=== PATIENT | male | born 1955 | race Caucasian/White ===

== ENCOUNTER 2024-01-22 13:20 | Emergency (ER) | payer MEDICARE, SELFPAY ==
[2024-01-22 13:20] VITALS: BP 118/73; PULSE 56; RESP 12; TEMP 35.3; O2SAT 97; BMI 34.9
[2024-01-22 13:40] VITALS: TEMP 36
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
--- NOTE | 2024-01-22 14:05 | RAD_ITS ---
EXAM: XR LEFT HIP WITH PELVIS WHEN PERFORMED, 2 OR 3 VIEWS CLINICAL INDICATION: left hip pain TECHNIQUE: Two or three views of the left hip with pelvis when performed. COMPARISON: No relevant prior studies available. FINDINGS: BONES/JOINTS: Severe right hip joint arthrosis with near obliteration of the joint space, acetabular sclerosis, and marginal osteophytes. Moderate degenerative changes of the left hip. Mild marginal osteophytes and articular sclerosis. Acetabular hypertrophy on the left. Degenerative changes in the lower lumbar spine and bilateral SI joints. No widening of the pubic symphysis. No acute fracture or dislocation. SOFT TISSUES: No significant abnormality. No soft tissue swelling or gas. RAD/HIP, UNI W/ Pelvis 2-3 Views IMPRESSION: No acute fracture or dislocation. Right greater than left hip joint arthrosis. Electronically Signed: Paolo Alexander DO at 14:53 EDT ,
--- NOTE | 2024-01-22 14:05 | CT_ITS ---
EXAM: CT HEAD AND CERVICAL SPINE WITHOUT INTRAVENOUS CONTRAST CLINICAL INDICATION: head injury, pain. TECHNIQUE: Helically acquired images were obtained of the head/brain and cervical spine without intravenous contrast. 2D reformatted images were reviewed. This CT exam was performed using one or more of the following dose reduction techniques: automated exposure control, adjustment of the mA and/or kV according to patient size, and/or use of iterative reconstruction technique. COMPARISON: Chest on the same date. Thoracic spine on the same date. FINDINGS: BRAIN AND EXTRA-AXIAL SPACES: No significant abnormality. No intra- or extra-axial hemorrhage. No evidence of acute infarct. No intracranial mass or mass effect. There is preservation of the campbell/white matter interface. Posterior fossa structures are unremarkable. Ventricles are appropriate for age. No hydrocephalus. Basal cisterns are patent. SKULL: No significant abnormality. No discrete lytic or blastic abnormalities. SINUSES: Left maxillary sinus mucus retention cyst. MASTOID AIR CELLS: No significant abnormality. Clear. SELLA: Evidence of partially empty sella turcica. VERTEBRAE: Multilevel facet, uncovertebral joint, and endplate osteophytosis. Reversal of expected cervical lordosis which may be in part positional or degenerative in nature. Partially visualized postoperative changes in the upper thoracic spine. No fracture. No traumatic subluxation. No discrete lytic or blastic abnormality. Aside from degenerative changes, normal craniocervical junction and cervicothoracic junction. DISCS/SPINAL CANAL/NEURAL FORAMINA: Mild to moderate multilevel spinal canal stenosis. Multilevel intervertebral disc height loss. Mild to moderate multilevel neural foraminal narrowing. SOFT TISSUES: No significant abnormality. No prevertebral soft tissue swelling. VASCULATURE: Vascular calcifications in the neck. LYMPH NODES: No significant abnormality. No cervical adenopathy. THYROID: Left-sided central neck mass described on comparison CT chest. This does not appear to emanate from the thyroid gland and may be a parathyroid adenoma or other entity. LUNG APICES: Normal as visualized. Clear. CT/Brain/Head without Contrast IMPRESSION: 1. Left-sided central neck mass described on comparison CT chest. This does not appear to emanate from the thyroid gland and may be a parathyroid adenoma or other entity. 2. No CT evidence of acute intracranial pathology. 3. No evidence of acute cervical spine fracture or traumatic subluxation. Degenerative changes. Electronically Signed: Paolo Alexander DO at 15:27 EDT ,
--- NOTE | 2024-01-22 14:05 | CT_ITS ---
ACR Level 3 findings have been noted. An addendum which confirms receipt of the report will follow. EXAM: CT CHEST, ABDOMEN, PELVIS, THORACIC SPINE AND LUMBAR SPINE WITHOUT INTRAVENOUS CONTRAST CLINICAL INDICATION: chest pain, abdominal pain TECHNIQUE: Helically acquired images were obtained of the chest, abdomen, pelvis, thoracic spine and lumbar spine without intravenous contrast. This CT exam was performed using one or more of the following dose reduction techniques: automated exposure control, adjustment of the mA and/or kV according to patient size, and/or use of iterative reconstruction technique. COMPARISON: CT cervical spine on the same date. FINDINGS: CHEST: LUNGS AND PLEURAL SPACES: Centrilobular emphysema. No mass. No pleural effusion or thickening. No pneumothorax. HEART: No significant abnormality. Heart size is normal. No pericardial effusion. No significant coronary artery calcifications. MEDIASTINUM: Medium to large hiatus hernia. No mediastinal or hilar adenopathy. Esophagus is unremarkable. No hiatal hernia. THYROID: No definite intrathyroidal lesion. Left-sided neck mass measuring up to 3.5 cm seemingly discrete from the adjacent thyroid gland, perhaps a large parathyroid adenoma. ABDOMEN: LIVER: Multiple hepatic cysts are present for which no follow-up is indicated. GALLBLADDER AND BILE DUCTS: No significant abnormality. No calcified gallstones. No gallbladder distention or wall edema. No intra- or extrahepatic biliary ductal dilation. PANCREAS: No significant abnormality. No focal cystic mass. SPLEEN: No significant abnormality. Normal size without focal cystic or solid mass. ADRENALS: No significant abnormality. No nodules. KIDNEYS AND URETERS: No significant abnormality. Normal renal size and position. No hydronephrosis. STOMACH AND BOWEL: Colonic diverticulosis without evidence of acute diverticulitis. No stomach or bowel distention. PELVIS: APPENDIX: Status post appendectomy. BLADDER: No significant abnormality. REPRODUCTIVE: Normal as visualized. No mass. THORACIC and LUMBAR SPINE: VERTEBRAE: Multilevel endplate osteophytosis and facet arthrosis. Multilevel thoracic laminoplasty and laminectomy. Multiple Schmorl''s nodes are identified. [place] left lumbar curvature. No spondylolysis or spondylolisthesis. DISCS/SPINAL CANAL/NEURAL FORAMINA: Mild multilevel thoracic spinal canal stenosis and moderate to severe multilevel lumbar spinal canal stenosis particularly at the level of L2-L3 associated with disc herniation, endplate osteophyte, annular calcification. Multilevel intervertebral disc height loss with scattered vacuum phenomenon particularly in the lumbar region. CHEST, ABDOMEN and PELVIS: INTRAPERITONEAL SPACE: No significant abnormality. No ascites or other fluid collection. No free air. BONES/JOINTS: Comminuted mid sternal fracture. Fracture of the right anterior fifth rib. Severe right and moderate left hip joint arthrosis. SOFT TISSUES: Fat-containing umbilical hernia. Bilateral moderate gynecomastia. VASCULATURE: Small cystic cavitary lesion within the left basilar lung measuring approximately 9 mm nonspecific, perhaps postinfectious or inflammatory. Septic emboli or neoplasm cannot be excluded. Atherosclerosis of the aorta. Aorta is non-dilated. LYMPH NODES: No significant abnormality. No enlarged lymph nodes. CT/CT Chest, Abd, Pelvis WO Cont IMPRESSION: 1. Small cystic cavitary lesion within the left basilar lung measuring approximately 9 mm nonspecific, perhaps postinfectious or inflammatory. Septic emboli or neoplasm cannot be excluded. 2. Comminuted mid sternal fracture. No retrosternal hematoma. Fracture of the right anterior fifth rib. 3. Left-sided neck mass measuring up to 3.5 cm seemingly discrete from the adjacent thyroid gland, perhaps a large parathyroid adenoma. Recommend neck ultrasound and/or multiphase CT, determined by clinical evaluation. 4. Centrilobular emphysema. NOTE: Emphysema on CT is an independent risk factor for lung cancer. Consider low dose CT for lung cancer screening between the ages of 50 and 77. 5. Medium to large hiatus hernia. 6. Postoperative changes in the thoracic spine. Multilevel degenerative changes. No evidence of thoracic or lumbar fracture. 7. Colonic diverticulosis without evidence of acute diverticulitis. Electronically Signed: Paolo Alexander DO at 15:22 EDT ,
--- NOTE | 2024-01-22 14:05 | CT_ITS ---
EXAM: CT HEAD AND CERVICAL SPINE WITHOUT INTRAVENOUS CONTRAST CLINICAL INDICATION: head injury, pain. TECHNIQUE: Helically acquired images were obtained of the head/brain and cervical spine without intravenous contrast. 2D reformatted images were reviewed. This CT exam was performed using one or more of the following dose reduction techniques: automated exposure control, adjustment of the mA and/or kV according to patient size, and/or use of iterative reconstruction technique. COMPARISON: Chest on the same date. Thoracic spine on the same date. FINDINGS: BRAIN AND EXTRA-AXIAL SPACES: No significant abnormality. No intra- or extra-axial hemorrhage. No evidence of acute infarct. No intracranial mass or mass effect. There is preservation of the campbell/white matter interface. Posterior fossa structures are unremarkable. Ventricles are appropriate for age. No hydrocephalus. Basal cisterns are patent. SKULL: No significant abnormality. No discrete lytic or blastic abnormalities. SINUSES: Left maxillary sinus mucus retention cyst. MASTOID AIR CELLS: No significant abnormality. Clear. SELLA: Evidence of partially empty sella turcica. VERTEBRAE: Multilevel facet, uncovertebral joint, and endplate osteophytosis. Reversal of expected cervical lordosis which may be in part positional or degenerative in nature. Partially visualized postoperative changes in the upper thoracic spine. No fracture. No traumatic subluxation. No discrete lytic or blastic abnormality. Aside from degenerative changes, normal craniocervical junction and cervicothoracic junction. DISCS/SPINAL CANAL/NEURAL FORAMINA: Mild to moderate multilevel spinal canal stenosis. Multilevel intervertebral disc height loss. Mild to moderate multilevel neural foraminal narrowing. SOFT TISSUES: No significant abnormality. No prevertebral soft tissue swelling. VASCULATURE: Vascular calcifications in the neck. LYMPH NODES: No significant abnormality. No cervical adenopathy. THYROID: Left-sided central neck mass described on comparison CT chest. This does not appear to emanate from the thyroid gland and may be a parathyroid adenoma or other entity. LUNG APICES: Normal as visualized. Clear. CT/Spine Cervical without Contras IMPRESSION: 1. Left-sided central neck mass described on comparison CT chest. This does not appear to emanate from the thyroid gland and may be a parathyroid adenoma or other entity. 2. No CT evidence of acute intracranial pathology. 3. No evidence of acute cervical spine fracture or traumatic subluxation. Degenerative changes. Electronically Signed: Paolo Alexander DO at 15:28 EDT ,
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
[2024-01-22] MEDS: Morphine 4 MG/ML Syringe IV (14:14)
[2024-01-22] MEDS: Ondansetron 4 MG/2 ML Vial IV (14:14)
[2024-01-22 15:20] VITALS: BP 121/70; PULSE 52; RESP 14; O2SAT 98
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
--- NOTE | 2024-01-22 15:45 | NURSING ---
NO OLD EKGS
[2024-01-22] MEDS: HYDROmorphone 1 MG/ML Syringe 0.5 MG IV (16:10)
[2024-01-22 16:16] LABS: Troponin-I HS 9 pg/mL (3.0-78.0)
--- NOTE | 2024-01-22 16:44 | NURSING ---
SQUAD ETA IS 1 HR
[2024-01-22 17:00] VITALS: BP 120/69; PULSE 61; RESP 14; O2SAT 93
[2024-01-22] MEDS: HYDROmorphone 1 MG/ML Syringe IV (17:31)
[2024-01-22 17:42] VITALS: BP 120/69; PULSE 61; RESP 16; TEMP 36.6; O2SAT 99
== END 2024-01-22 17:40 | disposition short-term general hospital (02) ==
PROVIDERS: Emergency Provider Emergency Medicine; Visit Provider Emergency Medicine
DX: S22.20XA Unspecified fracture of sternum, initial encounter for closed fracture (principal); S22.31XA Fracture of one rib, right side, initial encounter for closed fracture; M25.552 Pain in left hip; M54.9 Dorsalgia, unspecified; V43.52XA Car driver injured in collision with other type car in traffic accident, initial encounter; R22.1 Localized swelling, mass and lump, neck; R91.8 Other nonspecific abnormal finding of lung field; Z87.891 Personal history of nicotine dependence
CPT/HCPCS: 70450; 71250; 72125; 72128; 72131; 73502; 74176; 84484; 93005; 96374; 96375; 96376; 99283; A4216; J2405